=== PATIENT | female | born 1980 | race Caucasian/White ===

== ENCOUNTER 2017-09-13 22:32 | Emergency (ER) | payer OTHER, MEDICAID ==
[~2017-09-13] VITALS: Ht 160 cm; Wt 55.8 kg
[2017-09-13 23:24] LABS: HEMATOCRIT 37.6 % (37.0-47.0); HEMOGLOBIN 12.8 gm/dL (12.0-15.0); MCH 31.4 pg (26.0-34.0); MCHC 33.9 g/dL (28.0-37.0); MCV 92.5 fL (80.0-100.0); MPV 8.2 fl. (7.2-11.1); NUCLEATED RBCS 0 /100WBC; PLATELET COUNT* 341 thou/uL (150-400); RBC 4.06 mil/uL (4.20-5.00); RDW-CV 13.6 % (10.5-14.5); WBC 14.1 thou/uL (4.0-11.0)
[2017-09-13 23:27] LABS: URINE BLOOD 3+ (Negative); URINE CLARITY SL CLOUDY; URINE COLOR YELLOW; URINE GLUCOSE-RANDOM NEGATIVE (Negative); URINE KETONES NEGATIVE (Negative); URINE LEUKOCYTES-REFLEX TRACE (Negative); URINE NITRITE-REFLEX NEGATIVE (Negative); URINE PROTEIN 2+ (Negative); URINE SPECIFIC GRAVITY >= 1.030 (1.005-1.030); URINE UROBILINOGEN 0.2 E.U./dl (0.2-1.0)
[2017-09-13 23:28] LABS: CALCIUM 9.2 mg/dL (8.5-10.1); CREATININE 1.5 mg/dL (0.6-1.3); POTASSIUM 3.1 mmol/L (3.5-5.1)
[2017-09-13 23:33] LABS: URINE BILIRUBIN 1+ (Negative)
[2017-09-13 23:35] LABS: ICTOTEST (BILI CONFIRMATORY) Negative (Negative)
[2017-09-13 23:36] LABS: AMP/METHAMP POSITIVE (Negative); BARBITURATES POSITIVE (Negative); BENZODIAZEPINES Negative (Negative); COCAINE Negative (Negative); METHADONE Negative (Negative); OPIATES POSITIVE (Negative); PCP Negative (Negative); THC Negative (Negative)
[2017-09-13 23:42] LABS: ALBUMIN 4.7 g/dL (3.4-5.0); TOTAL BILIRUBIN 1.1 mg/dL (<0.1-1.0); TOTAL PROTEIN 8.1 g/dL (6.4-8.2)
[2017-09-13 23:44] LABS: SALICYLATE < 2.8 mg/dL (2.8-20.0)
[2017-09-13 23:45] LABS: ACETAMINOPHEN < 2 ug/mL (10-30)
[2017-09-13 23:46] LABS: ALCOHOL < 10 mg/dL (<10)
[2017-09-14 00:30] LABS: MUCUS 4-6 Moderate strn/LPF (None Seen); SQUAMOUS 0-3 Few /LPF (0-3)
[2017-09-14 00:31] LABS: HYALINE CASTS 4-10 Moderate /LPF (None Seen); URINE RBC 3-10 Few /HPF (0-2); URINE WBC-REFLEX >25 Many /HPF (0-5)
[2017-09-14 00:32] LABS: CRYSTALS None Seen /LPF (None Seen)
[2017-09-14 00:47] LABS: ABSOLUTE BASOPHILS 0.1 thou/uL (0.0-0.2); ABSOLUTE LYMPHOCYTES 0.8 thou/uL (0.8-5.3); ABSOLUTE MONOCYTES 0.6 thou/uL (0.0-1.2); ABSOLUTE NEUTROPHILS 12.5 thou/uL (1.6-8.1)
[2017-09-14 00:48] LABS: PLATELET ESTIMATE ADEQUATE
[2017-09-14 09:28] VITALS: BP 109/51
--- NOTE | 2017-09-15 09:11 | EKG ---
[place] [address] ELECTROCARDIOGRAM REPORT Name: RICCARDOMONICA Room: [facility]#: [id number] Admission: 09/13/17 Attend Phys: Discharge: 09/14/17 Date of : 82 Report #: [id number] THIS REPORT FOR: //name// [facility] ED Test Date: 2017-09-13 Test Time: 23:21:36 Pat Name: MONICA GU Department: Room: Gender: F Sales Representative Health Insurance: LATONYA : 1980 Requested By: Teresa Yeung Order Number: [id number] MD: Isiah Mcneal Measurements Intervals [place] Rate: 102 P: 81 MI: 131 QRS: 75 QRSD: 99 T: 61 QT: 385 QTc: 502 Interpretive Statements Sinus tachycardia Prolonged QT interval No previous ECG available for comparison Electronically Signed On 09-15-2017 9:10:56 CDT by Isiah Mcneal [email or web address] <ELECTRONICALLY SIGNED> By: Isiah Mcneal MD, [facility] 09/15/17 0910 2321 [id number] Isiah Mcneal MD, FACC /EPI
== END 2017-09-14 09:28 | disposition home or self-care (01) ==
LOC: M.ERS 22:32
PROVIDERS: Emergency Medicine
DX: F15.10 Other stimulant abuse, uncomplicated (principal); F43.10 Post-traumatic stress disorder, unspecified